=== PATIENT | male | born 1985 | race American Indian/Alaskan Native ===

== ENCOUNTER 2016-12-21 19:11 | Emergency (ER) | payer SELFPAY ==
[2016-12-21 19:24] VITALS: BP 189/120
[2016-12-21 20:08] LABS: Basophils % (Auto) 0.8 % (0.0-1.8); Eosinophils % (Auto) 9.3 % (0.0-4.3); Hemoglobin 14.5 gm/dl (11.8-15.2); Mean Corpuscular HGB Conc 33 % (32-34); Mean Corpuscular Hemoglobin 28 pg (28-32); Mean Corpuscular Volume 87 fl (84-94); Platelet Count 254 K/mm3 (140-440); Red Blood Count 5.09 M/mm3 (3.65-5.03); Red Cell Distribution Width 14.3 % (13.2-15.2); White Blood Count 5.6 K/mm3 (4.5-11.0)
[2016-12-21 20:13] LABS: Anion Gap 18 mmol/L; BUN/Creatinine Ratio 9.09; Blood Urea Nitrogen 10 mg/dL (9-20); Calcium 9.1 mg/dL (8.4-10.2); Carbon Dioxide 23 mmol/L (22-30); Glucose 103 mg/dL (75-100); Potassium 3.8 mmol/L (3.6-5.0); Sodium 141 mmol/L (137-145)
--- NOTE | 2016-12-22 06:15 | ED Elopement Review ---
ED Pt Elopement review - Results review Lab results: Laboratory Tests 12/21/16 12/21/16 12/21/16 19:36 19:36 23:07 WBC 5.6 RBC 5.09 H Hgb 14.5 Hct 44.0 MCV 87 MCH 28 MCHC 33 RDW 14.3 Plt Count 254 Lymph % (Auto) 45.5 H [place] % (Auto) 8.0 H Eos % (Auto) 9.3 H Baso % (Auto) 0.8 Lymph # 2.5 [place] # 0.4 Eos # 0.5 H Baso # 0.0 Seg Neutrophils % 36.4 L Seg Neutrophils # 2.0 Sodium 141 Potassium 3.8 Chloride 104.0 Carbon Dioxide 23 Anion Gap 18 BUN 10 Creatinine 1.1 Estimated GFR > 60 BUN/Creatinine Ratio 9.09 Glucose 103 H Calcium 9.1 Troponin T < 0.010 < 0.010 - Call Back decision Pt Call Back Decision: Pt to F/U with PMD (HTN)
== END 2016-12-22 | disposition left against medical advice (07) ==
LOC: ED 19:11
DX: R04.0 Epistaxis (principal); R42 Dizziness and giddiness; R07.9 Chest pain, unspecified; Z53.21 Procedure and treatment not carried out due to patient leaving prior to being seen by health care provider
CPT/HCPCS: 36415; 80048; 84484; 85025; 93005; 93010

== ENCOUNTER 2016-12-22 07:17 | Emergency (ER) | payer SELFPAY ==
[2016-12-22] MEDS ORDERED: CATAPRES PO ONE (07:36)
[2016-12-22 08:06] LABS: INR 0.98 (0.87-1.13)
[2016-12-22 08:07] LABS: Partial Thromboplastin Time 27.3 Sec. (24.2-36.6)
[2016-12-22 09:30] VITALS: BP 138/87
--- NOTE | 2016-12-22 09:57 | Emergency Department Report ---
HPI - General Chief Complaint: Nosebleed Time Seen by Provider: 12/22/16 09:40 - HPI HPI: This is a 31-year-old -[place] male who presents to the emergency department with complaint of bleeding from the left nostril is been going on intermittently over the past 3 days. It seemed to improve last night but this morning it started again and has increased in flow/intensity. He denies any trauma to the area. Patient also presents with very elevated blood pressure but denies any history of hypertension. He only has a history of asthma. He has not taken anything for symptoms prior to presentation. No recent travel or sick contacts at home. He does not have a primary care doctor. ED Past Medical Hx - Past Medical History Hx Asthma: Yes - Surgical History Hx Appendectomy: Yes - Social History Smoking Status: Current Every Day Smoker Substance Use Type: None - Medications Home Medications: Home Medications Medication Instructions Recorded Confirmed Last Taken Type amLODIPine [Norvasc] 5 mg PO DAILY #30 tab 12/22/16 Unknown Rx ED Review of Systems ROS: Stated complaint: NOSEBLEED Other details as noted in HPI Comment: All other systems reviewed and negative Constitutional: denies: chills, fever Eyes: denies: eye pain, eye discharge, vision change ENT: epistaxis. denies: ear pain Respiratory: denies: cough, shortness of breath, wheezing Cardiovascular: denies: chest pain, palpitations Gastrointestinal: denies: abdominal pain, nausea, diarrhea Genitourinary: denies: urgency, dysuria Musculoskeletal: denies: back pain, joint swelling, arthralgia Skin: denies: rash, lesions Neurological: denies: headache, weakness, paresthesias Physical Exam - Physical Exam Vital Signs: Vital Signs 12/22/16 12/22/16 12/22/16 07:23 07:42 09:25 Temperature 97.4 F L Pulse Rate 71 71 Respiratory 16 Rate Blood Pressure 188/126 188/126 Blood Pressure [Right] O2 Sat by Pulse 98 98 Oximetry 12/22/16 09:29 Temperature Pulse Rate 72 Respiratory 16 Rate Blood Pressure Blood Pressure 138/87 [Right] O2 Sat by Pulse 100 Oximetry Physical Exam: GENERAL: The patient is well-developed well-nourished. HEENT: Normocephalic. Atraumatic. Extraocular motions are intact. Patient has moist mucous membranes. Pupils equal reactive to light bilaterally. Oropharynx is clear. Patient has some blood seen in the left nasal passage but there is no active hemorrhage seen. NECK: Supple. Trachea is midline. CHEST/LUNGS: Clear to auscultation. There is no respiratory distress noted. HEART/CARDIOVASCULAR: Regular. There is no tachycardia. There is no gallop rub or murmur. ABDOMEN: Abdomen is soft, nontender. Patient has normal bowel sounds. There is no abdominal distention. SKIN: There is no rash. Skin is warm and dry. NEURO: The patient is awake, alert, and oriented. The patient is cooperative. The patient has no focal neurologic deficits. The patient has normal speech. MUSCULOSKELETAL: There is no tenderness or deformity. There is no limitation range of motion. There is no evidence of acute injury. ED Course Vital Signs 12/22/16 12/22/16 12/22/16 07:23 07:42 09:25 Temperature 97.4 F L Pulse Rate 71 71 Respiratory 16 Rate Blood Pressure 188/126 188/126 Blood Pressure [Right] O2 Sat by Pulse 98 98 Oximetry 12/22/16 09:29 Temperature Pulse Rate 72 Respiratory 16 Rate Blood Pressure Blood Pressure 138/87 [Right] O2 Sat by Pulse 100 Oximetry ED Medical Decision Making - Lab Data Result diagrams: 12/22/16 09:51 - Medical Decision Making Patient presents with three-day history of intermittent left sided epistaxis that started again this morning. He presents with very elevated blood pressure without any history of hypertension. He was given a dose of Catapres through triage and his blood pressure came down to a much more reasonable level. He was watched in the emergency department for a few hours and his epistaxis stopped and did not restart. I believe it is secondary to his elevated blood pressure but unknown what initially caused it started bleeding. Discussed with the patient about holding pressure for 20 minutes if it restarts. We discussed dietary changes for blood pressure control and the patient has been started on Norvasc. He was given referrals for primary care and told to start a blood pressure log. His labs are unremarkable for any bleeding disorder and he has a stable hemoglobin. He will return to the ER with any worsening of symptoms or any acute distress. - Differential Diagnosis hypertensive urgency, epistaxis, trauma Critical Care Time: No (,) Critical care attestation.: If time is entered above; I have spent that time in minutes in the direct care of this critically ill patient, excluding procedure time. ED Disposition Clinical Impression: Epistaxis Hypertension Qualifiers: Hypertension type: essential hypertension Qualified Code(s): I10 - Essential ( primary) hypertension Disposition: DISCHARGED TO HOME OR SELFCARE Is pt being admited?: No Does the pt Need Aspirin: No Condition: Good Instructions: Epistaxis (ED), Hypertension (ED) Additional Instructions: Please follow-up with a primary care doctor in the next few days. Return to the emergency department with any return of your nasal bleeding, especially if it continues to bleed after 20 minutes of pressure being held and good blood pressure control. Try to stay away from foods that are high in salt and any caffeinated products, such as red bull and coffee, in order to better control your blood pressure. I started you on a blood pressure medication, Norvasc, to be taken daily. Please keep a blood pressure log. Prescriptions: amLODIPine [Norvasc] 5 mg PO DAILY #30 tab Referrals: PRIMARY CARE, [Primary Care Provider] - 3-5 Days FOSTER SANCHEZ MD [Staff Physician] - 3-5 Days [facility] [Outside] - 3-5 Days [facility] [Outside] - 3-5 Days [facility] [Outside] - 3-5 Days Time of Disposition: 10:54
[2016-12-22 10:02] LABS: Basophils % (Auto) 0.9 % (0.0-1.8); Eosinophils % (Auto) 9.6 % (0.0-4.3); Hematocrit 46.8 % (35.5-45.6); Hemoglobin 15.2 gm/dl (11.8-15.2); Mean Corpuscular HGB Conc 32 % (32-34); Mean Corpuscular Hemoglobin 29 pg (28-32); Mean Corpuscular Volume 88 fl (84-94); Platelet Count 265 K/mm3 (140-440); Red Cell Distribution Width 14.5 % (13.2-15.2); White Blood Count 5.5 K/mm3 (4.5-11.0)
== END 2016-12-22 10:58 | disposition home or self-care (01) ==
LOC: ED 07:17
DX: R04.0 Epistaxis (principal); I10 Essential (primary) hypertension; J45.909 Unspecified asthma, uncomplicated; F17.200 Nicotine dependence, unspecified, uncomplicated
CPT/HCPCS: 36415; 85025; 85610; 85730; 99283